=== PATIENT | male | born 1950 | race Caucasian/White ===

== ENCOUNTER 2018-05-07 08:24 | Day surgery (SDC) | payer BC ==
[~2018-05-07] VITALS: Ht 175.3 cm; Wt 75.5 kg
[~2018-05-07 08:24] MED LIST: ALEVE PO; ALLOPURINOL300 MG PO; ASPIRIN E.C.325 MG PO; CENTRUM1 TAB PO; CLARITIN D TAB1 TAB PO; EQUATE ARTHRITIS PO; FISH OIL1 IU PO; LISINOPRIL/HCTZ1 TAB PO; SLEEP AIDE PO; SUDAFED PE PO; TYLENOL PM PO; TYLENOL SINUS PO
[2018-05-07] MEDS ORDERED: PRINIVIL5 MG PO (08:44)
[2018-05-07] MEDS ORDERED: TYLENOL 8 HR PO (08:44)
[2018-05-07] MEDS ORDERED: GNC L-ARGININE500 MG PO (08:45)
[2018-05-07] MEDS ORDERED: GINKGO3 PO (08:45)
[2018-05-07 08:52] VITALS: BP 136/92; PULSE 66; TEMP 98.3
[2018-05-07 10:10] VITALS: BP 141/85; PULSE 69; TEMP 98.1
[2018-05-07 10:25] VITALS: BP 131/86; PULSE 65
[2018-05-07 10:30] VITALS: BP 140/79; PULSE 56
[2018-05-07 10:45] VITALS: BP 132/71; PULSE 51
== END 2018-05-07 11:10 | disposition home or self-care (01) ==
LOC: SDCO 08:24
DX: R19.5 Other fecal abnormalities (principal); Z83.71 Family history of colonic polyps; D64.9 Anemia, unspecified; K64.9 Unspecified hemorrhoids; Z79.82 Long term (current) use of aspirin; K57.30 Diverticulosis of large intestine without perforation or abscess without bleeding
CPT/HCPCS: OP; J2250; J2405; J3010; J7030